=== PATIENT | female | born 1980 | race African-American/Black ===

== ENCOUNTER 2017-06-29 19:20 | Emergency (ER) | payer SELFPAY ==
[2017-06-29] MEDS ORDERED: ASPIRIN 81 MG TABLET, CHEWABLE PO ONE (19:32)
--- NOTE | 2017-06-29 20:00 | RADIOLOGY REPORT (SQ) ---
EXAM DESCRIPTION: CHEST SINGLE VIEW COMPLETED DATE/TIME: 06/29/2017 7:45 pm REASON FOR STUDY: cp COMPARISON: 01/17/2014. EXAM PARAMETERS: NUMBER OF VIEWS: One view. TECHNIQUE: Single frontal radiographic view of the chest acquired. RADIATION DOSE: NA LIMITATIONS: None. FINDINGS: LUNGS AND PLEURA: No opacities, masses or pneumothorax. No pleural effusion. MEDIASTINUM AND HILAR STRUCTURES: No masses. Contour normal. HEART AND VASCULAR STRUCTURES: Heart normal in size. Normal vasculature. BONES: No acute findings. HARDWARE: None in the chest. OTHER: No other significant finding. IMPRESSION: NO ACUTE RADIOGRAPHIC FINDING IN THE CHEST. TECHNICAL DOCUMENTATION: JOB ID: [id number]
[2017-06-29 20:04] LABS: ABSOLUTE BASOPHILS # (AUTO) 0.1 10^3/uL (0.0-0.2); ABSOLUTE EOSINOPHILS # (AUTO) 0.3 10^3/uL (0.0-0.6); ABSOLUTE LYMPHOCYTES (AUTO) 4.2 10^3/uL (0.5-4.7); ABSOLUTE MONOCYTES (AUTO) 0.6 10^3/uL (0.1-1.4); ABSOLUTE NEUT (AUTO) 4.4 10^3/uL (1.7-8.2); BASOPHILS % (AUTO) 1.1 % (0-2); EOSINOPHILS % (AUTO) 2.9 % (0-6); HEMATOCRIT 45.8 % (36.0-47.0); HGB HCT DIFFERENCE 2.2; LYMPHOCYTES % (AUTO) 43.5 % (13-45); MEAN CORPUSCULAR HEMOGLOBIN 30.1 pg (27.0-33.4); MEAN CORPUSCULAR HGB CONC 34.8 g/dL (32.0-36.0); MEAN CORPUSCULAR VOLUME 86 fl (80-97); MONOCYTES % (AUTO) 6.4 % (3-13); RED BLOOD COUNT 5.31 10^6/uL (3.72-5.28); RED CELL DISTRIBUTION WIDTH 13.9 % (11.5-14.0); SEGMENTED NEUTROPHILS % (AUTO) 46.1 % (42-78); WHITE BLOOD COUNT 9.6 10^3/uL (4.0-10.5)
--- NOTE | 2017-06-29 20:13 | ER Document Report ---
ED Cardiac - General Chief Complaint: Palpitations Stated Complaint: CHEST PAIN Time Seen by Provider: 06/29/17 19:59 Mode of Arrival: Ambulatory Information source: Patient, Relative - HPI Patient complains to provider of: Palpitations - pt states she had episode of tachycardia about a year ago and was put on some medicine (she doesn't know name ) and problem had not recurred until this afternoon. Denies SOB, pleuritic CP. Pt is a smoker and consumes caffeinated beverages regularly. - Related Data Allergies/Adverse Reactions: acetaminophen [From Percocet] Allergy (Unknown, Verified 04/01/13 21:18) latex [Latex] Allergy (Unknown, Verified 04/01/13 21:18) oxycodone HCl [From Percocet] Allergy (Unknown, Verified 04/01/13 21:18) Past Medical History - General Information source: Patient, Parent - Social History Smoking Status: Current Every Day Smoker Cigarette use (# per day): Yes Chew tobacco use (# tins/day): No Smoking Education Provided: Yes Family History: DM, Hypertension Pulmonary Medical History: Reports: Hx Asthma, Hx Bronchitis Neurological Medical History: Reports: Hx Migraine Past Surgical History: Reports: Hx Bowel Surgery - mass removed, Hx Gynecologic Surgery - ectopic s/p falopian tube removal, bilateral ovarian cyst - Immunizations Hx Diphtheria, Pertussis, Tetanus Vaccination: Yes - UTD Review of Systems - Review of Systems Constitutional: No symptoms reported EENT: No symptoms reported Cardiovascular: See HPI, Chest pain, Palpitations Respiratory: No symptoms reported Gastrointestinal: No symptoms reported Musculoskeletal: No symptoms reported Skin: No symptoms reported Neurological/Psychological: No symptoms reported -: Yes All other systems reviewed and negative Physical Exam - Vital signs Vitals: Resp Pulse Ox 21 H 99 06/29/17 19:41 06/29/17 19:41 Interpretation: Tachycardic - General General appearance: Appears well In distress: None - Respiratory Respiratory status: No respiratory distress Breath sounds: Normal - Cardiovascular Rhythm: Tachycardia Heart sounds: Normal auscultation - Abdominal Inspection: Normal Bowel sounds: Normal Tenderness: Nontender - Extremities General upper extremity: Normal inspection General lower extremity: Normal inspection - Neurological Neuro grossly intact: Yes Cognition: Normal Orientation: AAOx4 Course - Re-evaluation Re-evalutation: 06/29/17 20:49 pt feels much better at time of d/c -- HR still 117 and BP 152/106. She states that she has been under a great deal of stress lately as a stepson had recently moved into her house and "they argue constantly." She states she has been on ativan in the past and she would like to be placede back on it as well as some meds for HTN. I will accomodate her - Vital Signs Vital signs: Temp Pulse Resp BP Pulse Ox 12 152/118 H 97 06/29/17 20:01 06/29/17 20:01 06/29/17 20:03 - Laboratory Result Diagrams: 06/29/17 19:45 06/29/17 19:45 Laboratory results interpreted by me: 06/29/17 06/29/17 19:45 19:45 RBC 5.31 H Hgb 16.0 H BUN 6 L Direct Bilirubin 0.5 H AST 45 H - Diagnostic Test Radiology reviewed: Reports reviewed - nad - EKG Interpretation by Me Rate: Tachycardia - junctional tachycardia without acute change. Discharge - Discharge Clinical Impression: Tachycardia Condition: Stable Disposition: HOME, SELF-CARE Instructions: Benzodiazepines ([facility]), Palpitations (Irregular or Rapid Heartrate ) ([facility]) Additional Instructions: rest, take meds as prescribed, return if worse Prescriptions: Hydrochlorothiazide [Hydrodiuril 25 mg Tablet] 25 mg PO QAM #30 tablet Lorazepam [Ativan 1 mg Tablet] 1 mg PO Q4 PRN #30 tab PRN Reason: Forms: Elevated Blood Pressure, Smoking Cessation Education Referrals: KIARRA BURRELL MD [RN TELEMETRY] - Follow up as needed
[2017-06-29 20:19] LABS: ALANINE AMINOTRANSFERASE 23 U/L (9-52); ALBUMIN 4.6 g/dL (3.5-5.0); ALKALINE PHOSPHATASE 87 U/L (38-126); ANION GAP 12 (5-19); ASPARTATE AMINO TRANSFERASE 45 U/L (14-36); BILIRUBIN,DIRECT 0.5 mg/dL (0.0-0.4); BLOOD UREA NITROGEN 6 mg/dL (7-20); CALCIUM 9.9 mg/dL (8.4-10.2); CARBON DIOXIDE 26 mmol/L (22-30); CHLORIDE 105 mmol/L (98-107); CREATINE KINASE 80 U/L (30-135); CREATININE RESULT 0.71 mg/dL (0.52-1.25); GLUCOSE 90 mg/dL (75-110); POTASSIUM 3.8 mmol/L (3.6-5.0); SODIUM 142.8 mmol/L (137-145)
[2017-06-29 20:30] LABS: CREATINE KINASE MB 0.43 ng/mL (<4.55); TROPONIN I 0.027 ng/mL
[2017-06-29] MEDS ORDERED: TRAMADOL HCL 50 MG TABLET PO ONE (20:59)
[2017-06-29] MEDS ORDERED: PROMETHAZINE HCL 25 MG TABLET PO ONE (20:59)
[2017-06-29 21:02] VITALS: BP 153/118
--- NOTE | 2017-06-29 23:24 | EKG REPORT ---
SEVERITY:- ABNORMAL ECG - JUNCTIONAL TACHYCARDIA MINIMAL ST DEPRESSION, INFERIOR LEADS : Confirmed by: Mati Klein 29-Jun-2017 23:22:44
== END 2017-06-29 21:29 | disposition home or self-care (01) ==
LOC: ER 19:20
DX: R00.0 Tachycardia, unspecified (principal); Z79.899 Other long term (current) drug therapy; R07.9 Chest pain, unspecified; R00.2 Palpitations; I10 Essential (primary) hypertension; J45.909 Unspecified asthma, uncomplicated; F17.210 Nicotine dependence, cigarettes, uncomplicated
CPT/HCPCS: 36415; 71010; 80053; 82550; 82553; 84484; 85025; 85379; 93005; 93010; 99285